=== PATIENT | female | born 1985 | race Caucasian/White ===

== ENCOUNTER 2017-02-23 19:34 | Emergency (ER) | payer SELFPAY ==
[2017-02-23 19:59] VITALS: BP 144/81
--- NOTE | 2017-02-23 20:14 | ER Document Report ---
ED Medical Screen (RME) - General Chief Complaint: Sore Throat Stated Complaint: SORE THROAT Time Seen by Provider: 02/23/17 20:13 Notes: c/o sore throat x 2 days. + fever. + nasal congestion and body aches. Sudden onset. No strep since child. + nausea, no vomiting. has been taking dayquil regularly. I have greeted and performed a rapid initial assessment of this patient. A comprehensive ED assessment and evaluation of the patient, analysis of test results and completion of the medical decision making process will be conducted by additional ED providers. TRAVEL OUTSIDE OF THE [place] IN LAST 30 DAYS: No - Related Data Allergies/Adverse Reactions: No Known Allergies Allergy (Unverified 02/23/17 19:35) Physical Exam - Vital signs Vitals: Temp Pulse Resp BP Pulse Ox 99.3 F 97 18 144/81 H 98 02/23/17 19:58 02/23/17 19:58 02/23/17 19:58 02/23/17 19:58 02/23/17 19:58 Course - Vital Signs Vital signs: Temp Pulse Resp BP Pulse Ox 99.3 F 97 18 144/81 H 98 02/23/17 19:58 02/23/17 19:58 02/23/17 19:58 02/23/17 19:58 02/23/17 19:58
[2017-02-23] MEDS ORDERED: DEXAMETHASONE 4 MG TABLET PO ONE (21:30)
[2017-02-23] MEDS ORDERED: ACETAMINOPHEN 325 MG TABLET PO ONE (21:30)
--- NOTE | 2017-02-23 21:36 | ER Document Report ---
ED General - General Chief Complaint: Sore Throat Stated Complaint: SORE THROAT Time Seen by Provider: 02/23/17 20:13 Notes: Patient is a 31-year-old female with a past medical history who presents with 2 days of sore throat and subjective fever. Patient describes a constant, aching , scratching pain to the back of her throat. She states swallowing worsens the pain. She has been trying DayQuil with some improvement of the pain. She denies any difficulty handling oral secretions or swallowing fluids but states eating is quite difficult due to pain with swallowing. She has not seen a primary care physician regarding today's concerns. She denies a history of similar symptoms in the recent past. Multiple sick contacts. She denies any vomiting or diarrhea. TRAVEL OUTSIDE OF THE [place] IN LAST 30 DAYS: No - Related Data Allergies/Adverse Reactions: No Known Allergies Allergy (Unverified 02/23/17 19:35) Past Medical History - General Information source: Patient - Social History Smoking Status: Current Every Day Smoker Chew tobacco use (# tins/day): No Frequency of alcohol use: former Drug Abuse: None Lives with: Spouse/Significant other Family History: Reviewed & Not Pertinent Patient has suicidal ideation: No Patient has homicidal ideation: No Renal/ Medical History: Denies: Hx Peritoneal Dialysis Review of Systems - Review of Systems Notes: Constitutional: Positive for fever. HENT: Positive for sore throat. Eyes: Negative for visual changes. Cardiovascular: Negative for chest pain. Respiratory: Negative for shortness of breath. Gastrointestinal: Negative for abdominal pain, vomiting or diarrhea. Genitourinary: Negative for dysuria. Musculoskeletal: Negative for back pain. Skin: Negative for rash. Neurological: Negative for headaches, weakness or numbness. 10 point ROS negative except as marked above and in HPI. Physical Exam - Vital signs Vitals: Temp Pulse Resp BP Pulse Ox 99.3 F 97 18 144/81 H 98 02/23/17 19:58 02/23/17 19:58 02/23/17 19:58 02/23/17 19:58 02/23/17 19:58 Interpretation: Normal Notes: PHYSICAL EXAMINATION: GENERAL: Appears slightly uncomfortable but in no acute distress HEAD: Atraumatic, normocephalic. EYES: Pupils equal round and reactive to light, extraocular movements intact, sclera anicteric, conjunctiva are normal. ENT: nares patent, bilateral tonsillar hypertrophy with tonsillar exudates bilaterally. Uvula is midline.. Moderately dry mucous membranes. NECK: Normal range of motion, bilateral anterior cervical lymphadenopathy LUNGS: Breath sounds clear to auscultation bilaterally and equal. No wheezes rales or rhonchi. HEART: Regular rate and rhythm without murmurs ABDOMEN: Soft, nontender, normoactive bowel sounds. No guarding, no rebound. No masses appreciated. EXTREMITIES: Normal range of motion, no pitting or edema. No cyanosis. NEUROLOGICAL: No focal neurological deficits. Moves all extremities spontaneously and on command. PSYCH: Normal mood, normal affect. SKIN: Warm, Dry, normal turgor, no rashes or lesions noted. Course - Re-evaluation Re-evalutation: 02/23/17 21:34 Presentation of several days of sore throat in an otherwise well-appearing patient. Rapid strep is negative. History and exam are not consistent with a retropharyngeal abscess or peritonsillar abscess. Airway is patent. No difficulty handling oral secretions. Vitals within normal limits. Patient was treated with a dose of dexamethasone and advised on symptomatic care. Suspect likely viral pharyngitis. At this time will discharge with return precautions and follow-up recommendations. Verbal discharge instructions given a the bedside and opportunity for questions given. Medication warnings reviewed. Patient is in agreement with this plan and has verbalized understanding of return precautions and the need for primary care follow-up in the next 24-72 hours. - Vital Signs Vital signs: Temp Pulse Resp BP Pulse Ox 99.3 F 97 18 144/81 H 98 02/23/17 19:58 02/23/17 19:58 02/23/17 19:58 02/23/17 19:58 02/23/17 19:58 Discharge - Discharge Clinical Impression: Viral pharyngitis Condition: Good Disposition: HOME, SELF-CARE Additional Instructions: Your strep test is negative. Your symptoms are likely due to an viral infection and will resolve in the next 1-2 weeks. You have also been given a dose of steroids to help with your throat discomfort. Please continue to take ibuprofen 600 mg every 6 hours or Tylenol 1000 mg every 6 hours as needed for throat discomfort. You can also gargle with salt water. Continue to drink plenty of fluids. Follow-up with your primary care doctor in the next several days. Return if you become unable to swallow, have difficulty breathing, pass out, have persistent vomiting that prevents you from being able to tolerate fluids, or have any other symptoms that are concerning to you.
== END 2017-02-23 21:42 | disposition home or self-care (01) ==
LOC: ER 19:34
DX: J02.9 Acute pharyngitis, unspecified (principal); B97.89 Other viral agents as the cause of diseases classified elsewhere; R50.9 Fever, unspecified; F17.200 Nicotine dependence, unspecified, uncomplicated
CPT/HCPCS: 87070; 87077; 87804; 87880; 99283

== ENCOUNTER 2018-01-31 20:01 | Emergency (ER) | payer SELFPAY ==
[2018-01-31] MEDS ORDERED: PREDNISONE 20 MG TABLET PO ONE (22:08)
[2018-01-31] MEDS ORDERED: PSEUDOEPHEDRINE HCL 30 MG TABLET PO ONE (22:08)
[2018-01-31] MEDS ORDERED: IPRATROPIUM/ALBUTEROL 0.5-2.5 MG/3 ML AMPUL NEB ONE (22:08)
--- NOTE | 2018-01-31 22:09 | ER Document Report ---
HPI - HPI Patient complains to provider of: Cough Time Seen by Provider: 01/31/18 21:50 Onset: Last week Onset/Duration: Persistent Quality of pain: Achy Pain Level: 2 Context: Patient presents complaining of cough for the past week with occasional bloody sputum. Patient reports increased fatigue and nausea. Patient denies any fever , vomiting or diarrhea. Patient denies any urinary symptoms. Patient denies any recent bed rest, immobilization or travel. No previous history of DVT or PE. Associated Symptoms: Nonproductive cough, Nausea. denies: Chest pain, Fever, Vomiting Exacerbated by: Denies Relieved by: Denies Similar symptoms previously: No Recently seen / treated by doctor: No - ROS ROS below otherwise negative: Yes Systems Reviewed and Negative: Yes All other systems reviewed and negative - CONSTITUTIONAL Constitutional: DENIES: Fever, Chills - EENT EENT: REPORTS: Nasal Drainage-Clear, Congestion. DENIES: Sore Throat - NEURO Neurology: DENIES: Headache - CARDIOVASCULAR Cardiovascular: DENIES: Chest pain - RESPIRATORY Respiratory: REPORTS: Coughing. DENIES: Trouble Breathing - GASTROINTESTINAL Gastrointestinal: REPORTS: Nausea. DENIES: Abdominal Pain, Patient vomiting, Diarrhea - MUSCULOSKELETAL Musculoskeletal: DENIES: Back Pain - DERM Skin Color: Normal Skin Problems: None Past Medical History - General Information source: Patient - Social History Smoking Status: Current Every Day Smoker Smoking Education Provided: Yes Frequency of alcohol use: None Drug Abuse: None Occupation: Foodservice Family History: Reviewed & Not Pertinent Renal/ Medical History: Denies: Hx Peritoneal Dialysis Psychiatric Medical History: Reports: Hx Bipolar Disorder Surgical Hx: Negative Vertical Provider Document - CONSTITUTIONAL Agree With Documented VS: Yes Exam Limitations: No Limitations General Appearance: WD/WN, No Apparent Distress - INFECTION CONTROL TRAVEL OUTSIDE OF THE [place] IN LAST 30 DAYS: No - HEENT HEENT: Atraumatic, Normocephalic, Pharyngeal Erythema. negative: Pharyngeal Exudate, Pharyngeal Tenderness, Tympanic Membrane Red, Tympanic Membrane Bulging Notes: Clear rhinorrhea - NECK Neck: Normal Inspection, Supple. negative: Lymphadenopathy-Left, Lymphadenopathy-Right - RESPIRATORY Respiratory: No Respiratory Distress, Wheezing. negative: Rales, Rhonchi - CARDIOVASCULAR Cardiovascular: Regular Rate, Regular Rhythm, No Murmur. negative: Tachycardia - BACK Back: Normal Inspection - MUSCULOSKELETAL/EXTREMETIES Musculoskeletal/Extremeties: MAEW, FROM - NEURO Level of Consciousness: Awake, Alert, Appropriate Motor/Sensory: No Motor Deficit - DERM Integumentary: Warm, Dry, No Rash Course - Re-evaluation Re-evalutation: 01/31/18 22:50 Patient with good air movement bilaterally and decreased wheezing. Patient states she does feel as though her lungs have opened up after the nebulizer treatment. Patient with upper respiratory symptoms at this time. No tachycardia, no hypoxia. Patient is PERC negative, no concern for PE at this time. - Diagnostic Test Radiology reviewed: Reports reviewed Discharge - Discharge Clinical Impression: Bronchospasm, Nasal congestion Upper respiratory infection Qualifiers: URI type: unspecified URI Qualified Code(s): J06.9 - Acute upper respiratory infection, unspecified Condition: Stable Disposition: HOME, SELF-CARE Additional Instructions: Return immediately for any new or worsening symptoms Followup with your primary care provider, call tomorrow to make a followup appointment Use saline nasal spray [id number] to help with congestion symptoms UPPER RESPIRATORY ILLNESS: You have a viral infection of the respiratory passages -- a "cold." This common infection causes nasal congestion, drainage, and often sore throat and cough. It is highly contagious. The disease usually lasts about 10 to 14 days. There is no "cure" for the viral infection -- it must run its course. If there is a complication, such as bacterial infection in the nose, sinuses, middle ear, or bronchial tubes, antibiotics may be required. The antibiotics won't affect the virus. Drink plenty of fluids. A humidifier may help. An expectorant medication or decongestant may make you more comfortable. Use acetaminophen or ibuprofen for fever or aches. See the doctor if fever persists over two days, if there is any significant worsening of your symptoms, or if you simply fail to improve as expected. BRONCHOSPASM: You have tightness in the bronchial tubes, called bronchospasm. This often occurs with bronchial infections. Allergies, inhaled chemicals, and polluted or cold air can also provoke bronchospasm. It's more likely in patients with asthma in the family. Emergency treatment of bronchospasm may include adrenaline shots or bronchodilator aerosol. You may feel lightheaded and have a rapid pulse for an hour or two. Rest and get plenty of fluids. At home, we'll treat you with a bronchodilator inhaler. Antibiotics and corticosteroids may be required for some patients. Until you recover, avoid chemical fumes, dusts, pollens, and exercising in very cold or dry air. If you smoke, stop now!! If you develop a fever, increased wheezing, chest pain, or severe shortness of breath, you should contact the doctor immediately. INHALED BRONCHODILATORS: You have received a treatment of and/or prescription for an inhaled bronchodilator -- a medication which stimulates the airways in the lung to dilate. This improves the flow of air in asthma, bronchitis, and emphysema. These medicines have some similarity to adrenaline, and can cause similar side effects: shakiness, racing heart, and a sense of nervousness. These side effects decrease with time. Contact your doctor if these side effects are severe. Do not over-use the medicine. Too-frequent use of the inhaler may make it ineffective. Call your doctor if the inhaler is not controlling your symptoms at the prescribed doses. STEROID MEDICATION: You have been given an injection of or oral medicine of the cortisone/ steroid class. This medication is used to control inflammation or allergy. Marbin t is usually only given for a short period of time, until the acute process subsides. There are usually no side effects from short-term use of cortisone-like medications. Some persons feel an increased sense of well-being and are not sleepy at bedtime. Long-term use of cortisone medications is best avoided, unless required for a severe condition. If your condition does not remit, or relapses after the course of corticosteroid medication, you should consult your physician. USE OF ACETAMINOPHEN (Tylenol): Acetaminophen may be taken for pain relief or fever control. It's much safer than aspirin, offering a wider range of "safe" dosages. It is safe during . Some brand names are Tylenol, Panadol, Datril, Anacin 3, Tempra, and Liquiprin. Acetaminophen can be repeated every four hours. The following are maximum recommended dosages: >89 pounds or adults 650 mg to 900 mg Acetaminophen can be repeated every four hours. Maximum dose not to exceed 4000 mg a day. SMOKING: If you smoke, you should stop smoking. The tar and chemicals in cigarette smoke are harmful. Smoking has been shown to cause: emphysema chronic bronchitis lung cancer mouth and throat cancer stomach and pancreas cancer premature aging defects In addition, smoking increases ear and lung infections in children of smokers. FOLLOW-UP CARE: If you have been referred to a physician for follow-up care, call the physician s office for an appointment as you were instructed or within the next two days. If you experience worsening or a significant change in your symptoms, notify the physician immediately or return to the Emergency Department at any time for re-evaluation. Prescriptions: Prednisone [Deltasone 20 mg Tablet] 3 tab PO DAILY 4 Days tablet Promethazine HCl [Phenergan 25 mg Tablet] 25 mg PO Q6H PRN #8 tablet PRN Reason: Forms: Smoking Cessation Education, Return to Work Referrals: [facility] [Provider Group] - Follow up as needed [facility] [Provider Group] - Follow up as needed
--- NOTE | 2018-01-31 22:44 | RADIOLOGY REPORT (SQ) ---
EXAM DESCRIPTION: XR CHEST 2 VIEWS COMPLETED DATE/TME: 01/31/2018 22:08 CLINICAL HISTORY: 32 years, Female, cough Findings: The heart is not enlarged. No consolidation or pleural effusion. No pulmonary edema or pneumothorax. IMPRESSION: No acute disease.
[2018-01-31] MEDS ORDERED: ALBUTEROL SULFATE HFA (90 MCG/PUFF) 8 GM MDI (1 MDI/ER DISP) IH ONE (22:50)
[2018-01-31 23:04] VITALS: BP 156/83
== END 2018-01-31 23:10 | disposition home or self-care (01) ==
LOC: ER 20:01
DX: J98.01 Acute bronchospasm (principal); J06.9 Acute upper respiratory infection, unspecified; R09.81 Nasal congestion; R05 Cough; R53.83 Other fatigue; R11.10 Vomiting, unspecified; F17.200 Nicotine dependence, unspecified, uncomplicated
CPT/HCPCS: 94640; 99283; 71046; J7512; J3490; J7620

== ENCOUNTER 2018-05-03 16:03 | Emergency (ER) | payer SELFPAY ==
[2018-05-03 16:19] VITALS: BP 126/64
--- NOTE | 2018-05-03 19:53 | ER Document Report ---
ED General - General Chief Complaint: Abscess Stated Complaint: ABSCESS Time Seen by Provider: 05/03/18 19:40 Mode of Arrival: Ambulatory Information source: Patient TRAVEL OUTSIDE OF THE [place] IN LAST 30 DAYS: No - HPI Patient complains to provider of: dental pain, neck swelling Onset: Last week Onset/Duration: Gradual Quality of pain: Throbbing Severity: Moderate Pain Level: 3 Associated symptoms: denies: Chills, Fever Exacerbated by: Denies Relieved by: Denies Similar symptoms previously: No Recently seen / treated by doctor: No Notes: 32-year-old female coming in today with left lower jaw infection. Symptoms started last week and are getting worse. Patient stating hurts to swallow but is able to swallow food liquid and saliva. She has a decayed and broken left lower wisdom tooth that needs to be extracted but has not seen a dentist for this. - Related Data Allergies/Adverse Reactions: No Known Allergies Allergy (Unverified 02/23/17 19:35) Past Medical History - General Information source: Patient - Social History Smoking Status: Unknown if Ever Smoked Family History: Reviewed & Not Pertinent Patient has suicidal ideation: No Patient has homicidal ideation: No Renal/ Medical History: Denies: Hx Peritoneal Dialysis Psychiatric Medical History: Reports: Hx Bipolar Disorder Review of Systems - Review of Systems Notes: Constitutional: No fevers. No chills. EENT: No eye redness. No eye pain. No ear pain. No sore throat. Left lower jaw pain, mild neck swelling Cardiovascular: No chest pain. No palpitations. Respiratory: No cough. No shortness of breath. No respiratory distress. Gastrointestinal: No abdominal pain. No nausea, vomiting, or diarrhea. Genitourinary: Atraumatic. No lesions. No pain. No discharge. Musculoskeletal: Atraumatic. No swelling. No deformities. Skin: No rash or lesions. Lymphatic: No swollen lymph nodes. Neurologic: No headache. No syncope. Psychiatric: No suicidal or homicidal ideation. Physical Exam - Vital signs Vitals: Temp Pulse Resp BP Pulse Ox 98.7 F 69 16 126/64 H 98 05/03/18 16:17 05/03/18 16:17 05/03/18 16:17 05/03/18 16:17 05/03/18 16:17 - Notes Notes: General: Well-developed, well-nourished. In no acute distress. Non-toxic appearing. Cardiac: Well-perfused. Regular rate and rhythm. No murmurs, rubs, or gallops. Pulmonary: No respiratory distress. No cyanosis. Bilateral lung fiels are clear to auscultation. Abdominal: Non-distended. Non-rigid. Bowels sounds are present in all four quadrants. No guarding or rebound. HEENT: Head is atraumatic. Conjunctivae not reddened. No tearing. PERRL. EOMI. O rbits atraumatic. No periorbital swelling or erythema. Oropharynx is without erythema, swelling, or exudates. Dentition is in fair repair. Left lower jaw wisdom tooth is severely decayed and fractured. There is a little bit of gingival swelling present. No visualized abscess. There is also some mild swelling of the left side of the neck. There is no crepitus. No trismus. No drooling. No submandibular or sublingual swelling. No dysphonia dyspnea or dysphagia Neck: Supple. No adenopathy. No meningismus. Dermatologic: Warm with good turgor. No rash. Atraumatic. Chest: Atraumatic. No chest wall tenderness to palpation. Musculoskeletal: Moves all extremities well. No range of motion deficits. no muscular or joint tenderness. No paraspinal muscle tenderness. no midline spinal tenderness or step-off. Genitourinary: Examination deferred Neurologic: No gross neurologic deficits. Psychiatric: Normal mood. Course - Re-evaluation Re-evalutation: 05/03/18 19:51 Patient is sitting eating some chips and tolerating fluids. No difficulty speaking. No difficulty tolerating secretions. No fevers. Does not look septic. We will give her a shot of Rocephin here and start her on cephalexin as an outpatient. I told her I expected her to return to the ED for recheck or immediately if symptoms were getting worse. She is to make contact with the dental clinic provided to have this addressed. - Vital Signs Vital signs: Temp Pulse Resp BP Pulse Ox 98.7 F 69 16 126/64 H 98 05/03/18 16:17 05/03/18 16:17 05/03/18 16:17 05/03/18 16:17 05/03/18 16:17 Discharge - Discharge Clinical Impression: Dental abscess, Facial swelling Condition: Good Disposition: HOME, SELF-CARE Instructions: Dental Infection or Abscess ([facility]) Additional Instructions: Please follow-up with the dental clinic. Return emergently to the ER if swelling is worse or if difficulty swallowing. Prescriptions: Cephalexin Monohydrate [Keflex 500 mg Capsule] 500 mg PO Q6H 10 Days #40 capsule Naproxen 500 mg PO BID 7 Days #14 tablet Referrals: [facility] [Provider Group] - Follow up tomorrow
[2018-05-03] MEDS ORDERED: CEFTRIAXONE INJ 1000 MG VIAL IM ONE (20:00)
[2018-05-03] MEDS ORDERED: LIDOCAINE 1% INJ-PF (10 MG/ML) 30 ML SDV NEB ONE (20:00)
== END 2018-05-03 20:25 | disposition home or self-care (01) ==
LOC: ER 16:03
DX: K04.7 Periapical abscess without sinus (principal); R22.9 Localized swelling, mass and lump, unspecified
CPT/HCPCS: 99282; 96372; J3490; J0696

== ENCOUNTER 2018-10-20 17:15 | Emergency (ER) | payer SELFPAY ==
[2018-10-20] MEDS ORDERED: CLINDAMYCIN 600 MG/D5W RTU 600 MG/50 ML RTUPB IV ONE (18:13)
[2018-10-20] MEDS ORDERED: DEXAMETHASONE SOD PHOS INJ 10 MG/1 ML VIAL IV ONE (18:13)
--- NOTE | 2018-10-20 18:15 | ER Document Report ---
ED Medical Screen (RME) - General Chief Complaint: Abscess Stated Complaint: FACE SWELLING Time Seen by Provider: 10/20/18 17:57 Mode of Arrival: Ambulatory Information source: Patient Notes: 33-year-old female presented to ED for swelling to the left face and neck. She has a decayed left lower wisdom tooth. She states she did not have any swelling to the face and neck yesterday and she has swelling almost to the midline of her neck at this time. I did consult Dr. Shaun Hernandez who stated that she did need a CAT scan of the soft tissue neck due to the amount of swelling in this area. Dwayne julian is alert oriented respirations regular and unlabored speaking in full sentences at this time. 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 I have started clindamycin IV and Decadron per Dr. Hernandez recommendation. I have greeted and performed a rapid initial assessment of this patient. A comprehensive ED assessment and evaluation of the patient, analysis of test results and completion of medical decision making process will be conducted by an additional ED providers. Dictation of this chart was performed using voice recognition software; therefore, there may be some unintended grammatical errors. TRAVEL OUTSIDE OF THE [place] IN LAST 30 DAYS: No - Related Data Allergies/Adverse Reactions: No Known Allergies Allergy (Verified 10/20/18 17:16) Past Medical History Renal/ Medical History: Denies: Hx Peritoneal Dialysis Psychiatric Medical History: Reports: Hx Bipolar Disorder Physical Exam - Vital signs Vitals: Temp Pulse Resp BP Pulse Ox 98.6 F 114 H 18 110/73 96 10/20/18 17:19 10/20/18 17:19 10/20/18 17:19 10/20/18 17:19 10/20/18 17:19 Course - Vital Signs Vital signs: Temp Pulse Resp BP Pulse Ox 98.6 F 114 H 18 110/73 96 10/20/18 17:19 10/20/18 17:19 10/20/18 17:19 10/20/18 17:19 10/20/18 17:19
[2018-10-20 18:27] LABS: ABSOLUTE BASOPHILS # (AUTO) 0.1 10^3/uL (0.0-0.2); ABSOLUTE EOSINOPHILS # (AUTO) 0.3 10^3/uL (0.0-0.6); ABSOLUTE MONOCYTES (AUTO) 1.1 10^3/uL (0.1-1.4); ABSOLUTE NEUT (AUTO) 12.9 10^3/uL (1.7-8.2); BASOPHILS % (AUTO) 0.4 % (0-2); EOSINOPHILS % (AUTO) 1.9 % (0-6); HEMATOCRIT 41.6 % (36.0-47.0); HEMOGLOBIN 14.1 g/dL (12.0-15.5); LYMPHOCYTES % (AUTO) 12.4 % (13-45); MEAN CORPUSCULAR HEMOGLOBIN 29.7 pg (27.0-33.4); MEAN CORPUSCULAR HGB CONC 33.9 g/dL (32.0-36.0); MEAN CORPUSCULAR VOLUME 88 fl (80-97); MONOCYTES % (AUTO) 6.9 % (3-13); PLATELET COUNT 334 10^3/uL (150-450); RED BLOOD COUNT 4.75 10^6/uL (3.72-5.28); RED CELL DISTRIBUTION WIDTH 12.9 % (11.5-14.0); SEGMENTED NEUTROPHILS % (AUTO) 78.4 % (42-78); TOTAL CELLS COUNTED % (AUTO) 100 %; WHITE BLOOD COUNT 16.4 10^3/uL (4.0-10.5)
[2018-10-20 18:41] LABS: ANION GAP 8 (5-19); BLOOD UREA NITROGEN 5 mg/dL (7-20); CALCIUM 9.5 mg/dL (8.4-10.2); CARBON DIOXIDE 25 mmol/L (22-30); CHLORIDE 104 mmol/L (98-107); GLUCOSE 143 mg/dL (75-110); POTASSIUM 3.8 mmol/L (3.6-5.0)
[2018-10-20] MEDS ORDERED: NORMAL SALINE 1000 ML 1,000 ML IV ONE (20:57)
[2018-10-20] MEDS ORDERED: KETOROLAC TROMETHAMINE INJ/PF 30 MG/1 ML SDV IV ONE (21:26)
--- NOTE | 2018-10-20 21:27 | ER Document Report ---
ED ENT - General Chief Complaint: Abscess Stated Complaint: FACE SWELLING Time Seen by Provider: 10/20/18 17:57 Mode of Arrival: Ambulatory Notes: Patient is a 33-year-old female that comes to the emergency department for chief complaint of swelling to the left side of the face and neck, symptoms started about 3 days ago, she has a known fractured molar in the bottom left posterior part of the jaw. She states she has had dental infections before but never this bad. She denies fever/chills, difficulty swallowing, or any other complaints. Past medical history of bipolar/depression, medicated, she is also on Suboxone. TRAVEL OUTSIDE OF THE [place] IN LAST 30 DAYS: No - Related Data Allergies/Adverse Reactions: No Known Allergies Allergy (Verified 10/20/18 17:16) Past Medical History - General Information source: Patient - Social History Smoking Status: Current Every Day Smoker Frequency of alcohol use: None Drug Abuse: None Lives with: Family Family History: Reviewed & Not Pertinent Patient has suicidal ideation: No Patient has homicidal ideation: No Renal/ Medical History: Denies: Hx Peritoneal Dialysis Psychiatric Medical History: Reports: Hx Bipolar Disorder Surgical Hx: Negative - Immunizations Immunizations up to date: Yes Hx Diphtheria, Pertussis, Tetanus Vaccination: Yes Review of Systems - Review of Systems Constitutional: No symptoms reported EENT: See HPI Cardiovascular: No symptoms reported Respiratory: No symptoms reported Gastrointestinal: No symptoms reported Genitourinary: No symptoms reported Female Genitourinary: No symptoms reported Musculoskeletal: No symptoms reported Skin: No symptoms reported Hematologic/Lymphatic: No symptoms reported Neurological/Psychological: No symptoms reported Physical Exam - Vital signs Vitals: Temp Pulse Resp BP Pulse Ox 98.6 F 114 H 18 110/73 96 10/20/18 17:19 10/20/18 17:19 10/20/18 17:19 10/20/18 17:19 10/20/18 17:19 - Notes Notes: GENERAL: Alert, interacts well. No acute distress. HEAD: Normocephalic, atraumatic. EYES: Pupils equal, round, and reactive to light. Extraocular movements intact. ENT: Oral mucosa moist, tongue midline. Oropharynx unremarkable. Airway patent. There is a fractured tooth (number 17), erythema of the gumline, no abscess, unremarkable oropharyngeal exam otherwise. There is swelling of the side of the face/cheek. NECK: Full range of motion. Supple. Trachea midline. No submandibular swelling. LUNGS: Clear to auscultation bilaterally, no wheezes, rales, or rhonchi. No respiratory distress. HEART: Regular rate and rhythm. No murmur ABDOMEN: Soft, non-tender. Non-distended. Bowel sounds present in all 4 quadrants. GENITOURINARY: Deferred EXTREMITIES: Moves all 4 extremities spontaneously. No edema, normal radial and dorsalis pedis pulses bilaterally. No cyanosis. BACK: no cervical, thoracic, lumbar midline tenderness. No saddle anesthesia, normal distal neurovascular exam. Moves all extremities in full range of motion. NEUROLOGICAL: Alert and oriented x3. Normal speech. Cranial nerves II through XII grossly intact. PSYCH: Normal affect, normal mood. SKIN: Warm, dry, normal turgor. No rashes or lesions noted. Course - Re-evaluation Re-evalutation: Patient does have a lot of swelling over the left side of the face but not over the submandibular area. There is no induration or fluctuance, there is no head. Oral pharyngeal exam shows dental caries, erythema of the gumline, but no intraoral abscess. Airway is clear. CBC shows leukocytosis at 16,000 with elevation of neutrophils but no bandemia. Chemistry unremarkable. CAT scan reviewed, shows basically cellulitis but does not show defined abscess, does not show Rey's angina. No well-circumscribed fluid collection. Appears to have no drainable abnormality. Patient remains well-appearing on reevaluation. Patient has been given clindamycin and dexamethasone. I discussed with patient. Decision was made to discharge with follow-up, given clindamycin, and return precautions which were discussed in detail. Patient states satisfaction and agreement with plan. Stable at time of discharge. - Vital Signs Vital signs: Temp Pulse Resp BP Pulse Ox 98.3 F 103 H 18 115/67 100 10/20/18 23:00 10/20/18 23:00 10/20/18 23:00 10/20/18 23:00 10/20/18 23:00 - Laboratory Result Diagrams: 10/20/18 18:17 10/20/18 18:17 Laboratory results interpreted by me: 10/20/18 10/20/18 18:17 18:17 WBC 16.4 H Seg Neutrophils % 78.4 H Lymphocytes % 12.4 L Absolute Neutrophils 12.9 H Sodium 136.6 L BUN 5 L Creatinine 0.43 L Glucose 143 H Discharge - Discharge Clinical Impression: Swelling of left side of face, Dental infection Condition: Stable Disposition: HOME, SELF-CARE Additional Instructions: There is no identified abscess on imaging. This should respond to antibiotics and resolve. Take the clindamycin as prescribed to completion. Call the dental clinic referral and follow-up to have the tooth extracted so this will stop happening. Come back if you worsen including increased swelling of the face, swelling of the neck, difficulty swallowing or breathing, fever/chills, or any other concerning symptoms. [facility] [address], [address] Prescriptions: Clindamycin HCl [Cleocin 150 mg Capsule] 150 mg PO Q6 #56 capsule Forms: Return to Work
--- NOTE | 2018-10-20 22:01 | RADIOLOGY REPORT (SQ) ---
EXAM DESCRIPTION: CT NECK WITH IV CONTRAST COMPLETED DATE/TME: 10/20/2018 18:12 CLINICAL HISTORY: 33 years Female, Facial and neck swelling due to dental infection COMPARISON: None Available. TECHNIQUE: CT of the neck soft tissues obtained following the uncomplicated intravenous administration of 75 mL Omnipaque 350. DLP: 546.95 mGy-cm FINDINGS: Soft tissue: Visualized orbits and globes are unremarkable. Visualized intracranial contents demonstrate no definite abnormalities. Abnormalities of the parotid or submandibular glands. No abnormality in the parapharyngeal space, pharyngeal mucosal space, or retropharyngeal space. Paranasal sinuses and mastoid air cells are well aerated. No abnormalities of the visceral space. Periapical lucency surrounding the left mandibular second molar without definite cortical destruction. Dental caries involving at least the first right mandibular molar and left second mandibular molar. Edema within the subcutaneous soft tissues overlying the left face. No definite well-circumscribed fluid collection identified. No abnormalities of visualized thyroid gland. Mildly prominent submental lymph nodes may be reactive.. Remaining cervical lymph nodes are unremarkable. No abnormalities of the carotid arteries and jugular veins. Visualized lung apices are clear. Bones: No acute abnormalities of visualized cervical spine. Visualized facial bones are intact. IMPRESSION: 1. Periapical lucency and dental caries involving the left second mandibular molar with overlying edema which may represent cellulitis/inflammatory phlegmon. No definite well-circumscribed fluid collection identified. Mildly prominent submental lymph nodes may be reactive. This exam was performed according to our departmental dose-optimization program, which includes automated exposure control, adjustment of the mA and/or kV according to patient size and/or use of iterative reconstruction technique.
[2018-10-20 23:00] VITALS: BP 115/67
== END 2018-10-20 23:00 | disposition home or self-care (01) ==
LOC: ER 17:15
DX: K04.7 Periapical abscess without sinus (principal); R22.0 Localized swelling, mass and lump, head; R22.1 Localized swelling, mass and lump, neck; S02.5XXA Fracture of tooth (traumatic), initial encounter for closed fracture; X58.XXXA Exposure to other specified factors, initial encounter; F17.200 Nicotine dependence, unspecified, uncomplicated; Z79.899 Other long term (current) drug therapy
CPT/HCPCS: 99284; 96361; 96375; 96365; 36415; 87040; 85025; 80048; 70491; J1885; J7030; J1100

== ENCOUNTER 2019-01-12 11:49 | Emergency (ER) | payer SELFPAY ==
--- NOTE | 2019-01-12 12:19 | ER Document Report ---
ED Medical Screen (RME) - General Chief Complaint: Jaw Pain Stated Complaint: LEFT JAW SWOLLEN Time Seen by Provider: 01/12/19 12:16 Mode of Arrival: Ambulatory Information source: Patient Notes: 33-year-old female presented to ED for complaint of a dental infection to the left lower jaw. It has her face and jaw swollen at this time. She states that the infection started about October. She states she has not been to a dentist yet because her insurance starts in March. I have greeted and performed a rapid initial assessment of this patient. A comprehensive ED assessment and evaluation of the patient, analysis of test results and completion of medical decision making process will be conducted by an additional ED providers. TRAVEL OUTSIDE OF THE [place] IN LAST 30 DAYS: No - Related Data Allergies/Adverse Reactions: No Known Allergies Allergy (Verified 10/20/18 17:16) Past Medical History Renal/ Medical History: Denies: Hx Peritoneal Dialysis Psychiatric Medical History: Reports: Hx Bipolar Disorder - Immunizations Immunizations up to date: Yes Hx Diphtheria, Pertussis, Tetanus Vaccination: Yes Physical Exam - Vital signs Vitals: Temp Pulse Resp BP Pulse Ox 97.9 F 96 18 125/73 97 01/12/19 11:56 01/12/19 11:56 01/12/19 11:56 01/12/19 11:56 01/12/19 11:56 Course - Vital Signs Vital signs: Temp Pulse Resp BP Pulse Ox 97.9 F 96 18 125/73 97 01/12/19 11:56 01/12/19 11:56 01/12/19 11:56 01/12/19 11:56 01/12/19 11:56
[2019-01-12] MEDS ORDERED: DEXAMETHASONE SOD PHOS INJ 10 MG/1 ML VIAL IV ONE (12:22)
[2019-01-12] MEDS ORDERED: CLINDAMYCIN 600 MG/D5W RTU 600 MG/50 ML RTUPB IV ONE (12:22)
[2019-01-12] MEDS ORDERED: KETOROLAC TROMETHAMINE INJ/PF 30 MG/1 ML SDV IV ONE (12:22)
[2019-01-12 13:09] LABS: ABSOLUTE EOSINOPHILS # (AUTO) 0.3 10^3/uL (0.0-0.6); ABSOLUTE MONOCYTES (AUTO) 1.3 10^3/uL (0.1-1.4); ABSOLUTE NEUT (AUTO) 7.1 10^3/uL (1.7-8.2); BASOPHILS % (AUTO) 0.4 % (0-2); EOSINOPHILS % (AUTO) 2.5 % (0-6); HEMOGLOBIN 13.8 g/dL (12.0-15.5); LYMPHOCYTES % (AUTO) 25.8 % (13-45); MEAN CORPUSCULAR HEMOGLOBIN 30.3 pg (27.0-33.4); MEAN CORPUSCULAR HGB CONC 34.6 g/dL (32.0-36.0); MEAN CORPUSCULAR VOLUME 88 fl (80-97); MONOCYTES % (AUTO) 10.8 % (3-13); PLATELET COUNT 350 10^3/uL (150-450); RED BLOOD COUNT 4.57 10^6/uL (3.72-5.28); RED CELL DISTRIBUTION WIDTH 12.6 % (11.5-14.0); SEGMENTED NEUTROPHILS % (AUTO) 60.5 % (42-78); TOTAL CELLS COUNTED % (AUTO) 100 %; WHITE BLOOD COUNT 11.7 10^3/uL (4.0-10.5)
[2019-01-12 13:28] LABS: ALBUMIN 4.3 g/dL (3.5-5.0); ALKALINE PHOSPHATASE 55 U/L (38-126); ANION GAP 9 (5-19); ASPARTATE AMINO TRANSFERASE 28 U/L (14-36); BILIRUBIN,DIRECT 0.1 mg/dL (0.0-0.4); BILIRUBIN,TOTAL 0.6 mg/dL (0.2-1.3); BLOOD UREA NITROGEN 6 mg/dL (7-20); CALCIUM 9.5 mg/dL (8.4-10.2); CARBON DIOXIDE 25 mmol/L (22-30); CHLORIDE 105 mmol/L (98-107); GLUCOSE 95 mg/dL (75-110); POTASSIUM 3.9 mmol/L (3.6-5.0); TOTAL PROTEIN 7.4 g/dL (6.3-8.2)
--- NOTE | 2019-01-12 14:52 | RADIOLOGY REPORT (SQ) ---
EXAM DESCRIPTION: CT SOFT TISSUE NECK WITH COMPLETED DATE/TIME: 01/12/2019 2:10 pm REASON FOR STUDY: dental infection swelling down into neck COMPARISON: None. TECHNIQUE: Post IV contrasted scanning from skull base through lung apices with review of bone, soft tissue and lung windows. Reconstructed coronal and sagittal MPR images reviewed. All images stored on PACS. All CT scanners at this facility use dose modulation, iterative reconstruction, and/or weight based d osing when appropriate to reduce radiation dose to as low as reasonably achievable (ALARA). [facility]: Dose Right [facility]: CareDose [facility]: Dose Right [facility]: Teradose 4D [facility]: Aquapharm [employer] CONTRAST TYPE AND DOSE: contrast/concentration: Isovue 350.00 mg/ml; Total Contrast Delivered: 74.0 ml; Total Saline Delivered: 55.0 ml RENAL FUNCTION: None required. The patient is less than 50 years old. RADIATION DOSE: CT Rad equipment meets quality standard of care and radiation dose reduction techniq ues were employed. CTDIvol: 16.5 mGy. DLP: 552 mGy-cm. . LIMITATIONS: None. FINDINGS: SKULL BASE: Intact. MAJOR SALIVARY GLANDS: No solid or cystic masses. No inflammatory changes. LYMPHADENOPATHY: There are asymmetrically enlarged left submandibular and anterior cervical chain lym ph nodes. MUCOSAL MASSES OR ASYMMETRY: No mucosal masses or asymmetry. LARYNX/CORDS: No abnormal findings. VASCULAR STRUCTURES: The major vessels are patent. LUNG APICES: Clear. BONES: Intact. TEETH: There is a large cavity of the left mandibular 2nd molar with associated apical lucency (toot h 18, series 200, image 52, series 3, image 42). There is no discrete fluid collection or abscess i dentified. SOFT TISSUES: Soft tissue edema about the left neck. THYROID: Normal size. No masses. PARANASAL SINUSES: Clear. OTHER: No other significant finding. IMPRESSION: There is a large cavity of the left mandibular 2nd molar with associated apical lucency (tooth 18, series 200, image 52, series 3, image 42). There is no discrete fluid collection or absces s identified. There are asymmetrically enlarged left submandibular and anterior cervical chain lymph nodes. Soft tissue edema about the left neck. TECHNICAL DOCUMENTATION: JOB ID: [id number] Quality ID # [id number]: Final reports with documentation of one or more dose reduction techniques (e.g., Au tomated exposure control, adjustment of the mA and/or kV according to patient size, use of iterative reconstruction technique) 2010 [employer]- All Rights Reserved Reading location - IP/workstation name: [email or web address]
--- NOTE | 2019-01-12 15:41 | ER Document Report ---
ED General - General Chief Complaint: Facial Swelling Stated Complaint: LEFT JAW SWOLLEN Time Seen by Provider: 01/12/19 12:16 Mode of Arrival: Ambulatory TRAVEL OUTSIDE OF THE [place] IN LAST 30 DAYS: No - HPI Notes: Patient is a 33-year-old female who presents emergency department for evaluation of left-sided facial swelling. She started having pain in her tooth yesterday, this morning she woke and she had significant swelling. She has a history of this in the past. She does not have a dentist. She denies any fevers or chills. No nausea or vomiting. She denies any difficulty speaking, breathing. She is opening her mouth without difficulty. - Related Data Allergies/Adverse Reactions: No Known Allergies Allergy (Verified 01/12/19 12:18) Home Medications: Suboxone daily Past Medical History - General Information source: Patient - Social History Smoking Status: Current Every Day Smoker Chew tobacco use (# tins/day): No Frequency of alcohol use: None Drug Abuse: Prescription drugs Family History: Reviewed & Not Pertinent Patient has suicidal ideation: No Patient has homicidal ideation: No Renal/ Medical History: Denies: Hx Peritoneal Dialysis Psychiatric Medical History: Reports: Hx Bipolar Disorder - Immunizations Immunizations up to date: Yes Hx Diphtheria, Pertussis, Tetanus Vaccination: Yes Review of Systems - Review of Systems Constitutional: No symptoms reported EENT: See HPI Cardiovascular: No symptoms reported Respiratory: No symptoms reported Gastrointestinal: No symptoms reported Genitourinary: No symptoms reported Musculoskeletal: No symptoms reported Skin: No symptoms reported Neurological/Psychological: No symptoms reported Physical Exam - Vital signs Vitals: Temp Pulse Resp BP Pulse Ox 97.9 F 96 18 125/73 97 01/12/19 11:56 01/12/19 11:56 01/12/19 11:56 01/12/19 11:56 01/12/19 11:56 - Notes Notes: Vital signs reviewed, please refer to chart. Head is normocephalic, atraumatic. Pupils equal round, reactive to light. Patient has a moderate amount of swelling about the left mandible, down into the submandibular space. Examination of the dentition yields significant decay of the second left mandibular molar. She has no sublingual swelling. No pharyngeal edema. Neck is supple without meningismus. Heart is regular rate and rhythm. Lungs are clear to auscultation bilaterally. Abdomen is soft, nontender, normoactive bowel sounds throughout. Extremities without cyanosis, clubbing. Posterior calves are nontender. Peripheral pulses are equal. Skin is warm and dry. Patient is awake, alert, neurological exam is nonfocal. Course - Re-evaluation Re-evalutation: 01/12/19 15:39 Patient presents emergency department for evaluation. There was some concern for a potential focal abscess. She needs to see a dentist as soon as possible, and she voiced understanding to this. I will send her home on antibiotics, she is given a dose of IV clindamycin here. We will also send her home with anti- inflammatories. She is to return to the ED with worsening or new concerning symptoms of any sort. - Vital Signs Vital signs: Temp Pulse Resp BP Pulse Ox 97.9 F 96 18 125/73 97 01/12/19 11:56 01/12/19 11:56 01/12/19 11:56 01/12/19 11:56 01/12/19 11:56 - Laboratory Result Diagrams: 01/12/19 12:58 01/12/19 12:58 Laboratory results interpreted by me: 01/12/19 01/12/19 12:58 12:58 WBC 11.7 H BUN 6 L Creatinine 0.46 L - Diagnostic Test Radiology reviewed: Reports reviewed Radiology results interpreted by me: 01/12/19 15:[address] 01/12/19 12:20 IMPRESSION: There is a large cavity of the left mandibular 2nd molar with associated apical lucency (tooth 18, series 200, image 52, series 3, image 42). There is no discrete fluid collection or abscess identified. There are asymmetrically enlarged left submandibular and anterior cervical chain lymph nodes. Soft tissue edema about the left neck. Discharge - Discharge Clinical Impression: Dental abscess Condition: Stable Disposition: HOME, SELF-CARE Instructions: Abscess ([facility]) Additional Instructions: You need to see a dentist as soon as possible. Please follow-up with the dental referrals, or [facility]. Take antibiotics as prescribed, anti- inflammatories as prescribed with food. Return to the emergency department with worsening or new concerning symptoms of any sort.
[2019-01-12 15:52] VITALS: BP 120/70
== END 2019-01-12 15:50 | disposition home or self-care (01) ==
LOC: ER 11:49
DX: K04.7 Periapical abscess without sinus (principal); R22.0 Localized swelling, mass and lump, head; K08.89 Other specified disorders of teeth and supporting structures; F17.200 Nicotine dependence, unspecified, uncomplicated
CPT/HCPCS: 36415; 87040; 84703; 85025; 80053; 70491; J1885; J1100